=== PATIENT | male | born 1970 | race African-American/Black ===

== ENCOUNTER → 2021-04-12 17:23 | Outpatient (CLI) | payer OTHER, SELFPAY ==
--- NOTE | ~2021-04-12 | XR_ITS ---
XR cervical spine 4-5V DATE: 04/12/2021 18:56 INDICATION: Neck pain, radicular pain to left arm and shoulder TECHNIQUE: Standing AP, lateral, open-mouth, odontoid and swimmer views COMPARISON: None FINDINGS: C1 and C2 are normally aligned and the odontoid process is intact. No fracture or dislocati on or locked facet or prevertebral soft tissue swelling. There is minimal retrolisthesis at C4-5. There is moderate loss of disc space height at C5-6 and C6-7. There is uncovertebral joint spurring at C5-6 primarily. IMPRESSION: Digital changes of the mid and lower cervical spine Reviewed, dictated and finalized at location B.
--- NOTE | ~2021-04-12 | XR_ITS ---
XR shoulder LT min 2V DATE: 04/12/2021 18:56 INDICATION: Neck pain, radicular pain of left arm, shoulder TECHNIQUE: 4 views of left shoulder COMPARISON: None FINDINGS: No fracture, dislocation, periosteal reaction or bone destruction or abnormal soft tissue c alcification. Normal alignment at the acromioclavicular and glenohumeral joints. IMPRESSION: Negative Reviewed, dictated and finalized at location B. IMPRESSION: Negative
== END ==
PROVIDERS: PCP Pediatrics; Visit Provider Nurse Practitioner Family
DX: M54.2 Cervicalgia (principal); M79.2 Neuralgia and neuritis, unspecified; M25.512 Pain in left shoulder
CPT/HCPCS: 72050; 73030

== ENCOUNTER → 2021-06-20 15:30 | Outpatient (CLI) | payer OTHER, SELFPAY ==
--- NOTE | ~2021-06-20 | MR_ITS ---
EXAMINATION: MR cervical spine wo con DATE: 06/20/2021 16:19 INDICATION: Neck pain. TECHNIQUE: Magnetic resonance imaging (MRI) of the cervical spine was performed without intravenous c ontrast. Sequences included sagittal T2-weighted FSE, sagittal STIR FSE, sagittal T1-weighted FSE, ax ial MERGE, and axial T2-weighted FSE. COMPARISON: Cervical spine radiographs 04/12/2021 FINDINGS: There is 2 mm additional listhesis of C5 on C6. Vertebral body heights are normal. There is moderately decreased disc height at C5-C6. The spinal cord signal intensity is normal. The following disc levels are specifically discussed: C2-C3: The disc does not extend beyond the endplate margin. There is no uncovertebral joint osteoarth ritis. There is mild bilateral facet joint osteoarthritis. There is no neural foraminal stenosis. The re is no central canal stenosis. C3-C4: The disc does not extend beyond the endplate margin. There is no uncovertebral joint osteoarth ritis. There is mild left facet joint osteoarthritis. There is no neural foraminal stenosis. There is no central canal stenosis. C4-C5: The disc does not extend beyond the endplate margin. There is mild right uncovertebral joint o steoarthritis. There is mild bilateral facet joint osteoarthritis. There is mild right neural foramin al stenosis. There is no central canal stenosis. C5-C6: The disc is bulging. There is moderate bilateral uncovertebral joint osteoarthritis. There is mild bilateral facet joint osteoarthritis. There is moderate bilateral neural foraminal stenosis. The re is mild central canal stenosis. C6-C7: The disc does not extend beyond the endplate margin. There is moderate left uncovertebral join t osteoarthritis. There is mild bilateral facet joint osteoarthritis. There is mild left neural sabas inal stenosis. There is no central canal stenosis. C7-T1: The disc does not extend beyond the endplate margin. There is no uncovertebral joint osteoarth ritis. There is mild bilateral facet joint osteoarthritis. There is no neural foraminal stenosis. The re is no central canal stenosis. IMPRESSION: 1. Moderate spondylosis at C5-C6 and mild spondylosis at other levels. Reviewed, dictated and finalized at location A.
== END ==
PROVIDERS: PCP Pediatrics; Visit Provider Nurse Practitioner Family
DX: M47.892 Other spondylosis, cervical region (principal)
CPT/HCPCS: 72141

== ENCOUNTER 2022-12-08 12:48 | Outpatient (CLI) | payer BC, SELFPAY ==
--- NOTE | ~2022-12-08 | MR_ITS ---
EXAMINATION: MR cervical spine wo con DATE: 12/08/2022 13:55 INDICATION: Weakness. TECHNIQUE: Magnetic resonance imaging (MRI) of the cervical spine was performed without intravenous c ontrast. COMPARISON: Cervical spine MRI 06/20/2021 FINDINGS: There is 5 degrees dextrocurvature of cervical spine. Vertebral body heights are normal. Th ere is moderately decreased disc height at C5-C6. There is a lesion of increased T2-weighted signal i ntensity in the spinal cord on the left at C2 and C2-C3. The following disc levels are specifically d iscussed: C2-C3: The disc does not extend beyond the endplate margin. There is no uncovertebral joint osteoarth ritis. There is no facet joint osteoarthritis. There is no neural foraminal stenosis. There is no mannie tral canal stenosis. C3-C4: The disc does not extend beyond the endplate margin. There is mild left uncovertebral joint os teoarthritis. There is mild bilateral facet joint osteoarthritis. There is mild left neural foraminal stenosis. There is no central canal stenosis. C4-C5: The disc does not extend beyond the endplate margin. There is no uncovertebral joint osteoarth ritis. There is no facet joint osteoarthritis. There is no neural foraminal stenosis. There is no mannie tral canal stenosis. C5-C6: The disc is bulging. There is severe right and moderate left uncovertebral joint osteoarthriti s. There is mild bilateral facet joint osteoarthritis. There is moderate bilateral neural foraminal s tenosis. There is mild central canal stenosis. C6-C7: The disc does not extend beyond the endplate margin. There is severe left uncovertebral joint osteoarthritis. There is moderate left facet joint osteoarthritis. There is no neural foraminal steno sis. There is no central canal stenosis. C7-T1: The disc does not extend beyond the endplate margin. There is no uncovertebral joint osteoarth ritis. There is mild bilateral facet joint osteoarthritis. There is no neural foraminal stenosis. The re is no central canal stenosis. IMPRESSION: 1. Lesion in the spinal cord on the left at C2 and C2-C3. The differential diagnosis includes multipl e sclerosis, transverse myelitis, and acute disseminated encephalomyelitis (ADEM). 2. Moderate cervical spondylosis. Reviewed, dictated and finalized at location A. IMPRESSION: 1. Lesion in the spinal cord on the left at C2 and C2-C3. The differential diag nosis includes multiple sclerosis, transverse myelitis, and acute disseminated encephalomyelitis (ADEM). 2. Moderate cervical spondylosis.
--- NOTE | ~2022-12-08 | MR_ITS ---
EXAMINATION: MR brain IAC wo con DATE: 12/08/2022 13:55 INDICATION: Left hemiparesis. Tingling . Hearing loss. TECHNIQUE: Magnetic resonance imaging (MRI) of the brain, brainstem, and internal auditory canals was performed without intravenous contrast. COMPARISON: None. FINDINGS: There are scattered areas of nonspecific increased T2-weighted signal intensity in the cere bral white matter. There is no intracranial hemorrhage, acute infarction, or abnormal intracranial ma ss lesion. The ventricles are normal in size. There is mucosal thickening in the paranasal sinuses. T he mastoid air cells are normal. The internal auditory canals and inner and middle ears are normal. T he orbits are normal. IMPRESSION: 1. Mild nonspecific cerebral white matter disease, which likely represents chronic small vessel ische gena disease. Reviewed, dictated and finalized at location A. IMPRESSION: 1. Mild nonspecific cerebral white matter disease, which likely represents chronic care nurse kale small vessel ischemic disease.
== END 2022-12-08 12:49 | disposition home or self-care (01) ==
PROVIDERS: PCP Pediatrics; Visit Provider Nurse Practitioner Adult Health
DX: R53.1 Weakness (principal); M47.892 Other spondylosis, cervical region; R93.0 Abnormal findings on diagnostic imaging of skull and head, not elsewhere classified
CPT/HCPCS: 70551; 72141

== ENCOUNTER 2023-01-09 13:29 | Outpatient (CLI) | payer BC, SELFPAY ==
--- NOTE | ~2023-01-09 | MR_ITS ---
EXAMINATION: MR thoracic spine wo/w con DATE: 01/09/2023 14:54 INDICATION: Left-sided weakness TECHNIQUE: Magnetic resonance imaging (MRI) of the thoracic spine was performed without and with 13 m L Multihance intravenous contrast. Sagittal localizer T1-weighted FSE of the cervicothoracic spine wa s obtained. Sequences included sagittal T2-weighted FSE, sagittal T2-weighted FS FSE, sagittal T1-alice ghted FSE and axial T1-weighted SE. Postcontrast sequences included axial T2-weighted FSE, sagittal T 1-weighted FS FSE, and axial T1-weighted FS SE. COMPARISON: None FINDINGS: Alignment is normal.Vertebral body heights are normal. Normal marrow signal. Disc heights are normal. This do not extend beyond the endplate margins and there is no central canal stenosis. There is norm al spinal cord signal. The conus terminates at L1. There are no abnormal enhancing cord lesions. Mild facet osteoarthritis at a few levels in the mid to upper thoracic spine. No neural foraminal stenosi s. Paravertebral soft tissues are unremarkable.. IMPRESSION: 1. Mild facet osteoarthritis at a few levels in the mid upper thoracic spine is otherwise unremarkabl e. Otherwise unremarkable thoracic spine MR with no cord lesions or central canal or neural foraminal stenosis. Reviewed, dictated and finalized at location A. IMPRESSION: 1. Mild facet osteoarthritis at a few levels in the mid upper thoracic spine is otherwise unremarkable. Otherwise unremarkable thoracic spine MR with no cord lesions or central canal or neural foraminal stenosis.
--- NOTE | ~2023-01-09 | MR_ITS ---
EXAMINATION: MR cervical spine wo/w con DATE: 01/09/2023 14:54 INDICATION: Weakness TECHNIQUE: Magnetic resonance imaging (MRI) of the cervical spine was performed without and with 13 m L Multihance intravenous contrast. Sequences included sagittal T2-weighted FSE, sagittal T2-weighted FS FSE, sagittal T1-weighted FSE, axial T2-weighted FSE, and axial T1-weighted SE. Postcontrast seque nces included sagittal T1-weighted FS FSE, and axial T1-weighted FS SE. COMPARISON: 12/08/2022 FINDINGS: Unchanged 5 degrees cervical dextrocurvature. 1 mm retrolisthesis C5 on C6. Vertebral body heights ar e normal. Bone marrow signal intensity is normal. Unchanged moderate disc height loss at C5-C6 with d isc bulges resulting in mild central canal stenosis at this level. There is moderate left and severe right uncovertebral osteoarthritis along with mild bilateral facet osteoarthritis at this level which contributes to moderate bilateral neural foraminal stenosis. Additional unchanged facet and uncovert ebral osteoarthritis contributing to mild neural foraminal stenosis at a few additional levels as det eli on level by level basis on the prior report. No interval change in a T2 hyperintense lesion in the mid to posterior left side of the spinal cord at the level of C2 and C2-C3 which measures 1.3 cm craniocaudally and 5 mm in maximal orthogonal diameter. No evident associated enhancement or expansio n/contraction of the cord. No other cord lesions or abnormal enhancing lesions identified. IMPRESSION: 1. No interval change in a T2 hyperintense, nonenhancing, nonexpansile cord lesion at the left side o f the spinal cord at level of C2 and C2-C3. Differential remains multiple sclerosis, transverse myeli tis and acute disseminated encephalomyelitis (ADEM). 2. Moderate cervical spondylosis. Reviewed, dictated and finalized at location A. IMPRESSION: 1. No interval change in a T2 hyperintense, nonenhancing, nonexpansile cord les ion at the left side of the spinal cord at level of C2 and C2-C3. Differential remains multiple sclerosis, transverse myelitis and acute disseminated encephal omyelitis (ADEM). 2. Moderate cervical spondylosis.
== END 2023-01-09 13:30 ==
PROVIDERS: PCP Pediatrics; Visit Provider Neurological Surgery
DX: R53.1 Weakness (principal); M51.34 Other intervertebral disc degeneration, thoracic region; M47.892 Other spondylosis, cervical region
CPT/HCPCS: 72156; 72157; A9577

== ENCOUNTER 2023-01-27 09:30 | Outpatient (CLI) | payer BC, SELFPAY ==
[2023-01-21 11:23] VITALS: BMI 19.1
--- NOTE | 2023-01-21 11:23 | PC.NURSE ---
Pre Radiology instructions Report to the outpatient [facility] on date 01/27/23 at time 0900 for procedure Time: 1100. YOU MAY BE MONITORED AT HOSPITAL FOR UP TO 4 HOURS AFTER YOUR PROCEDURE. A visitor will be allowed to accompany the patient into the hospital. You and your visitor will be asked to self-screen and do not enter if you have any COVID symptoms. A mask is OPTIONAL within the hospital. Patients are to have no food or drink 6 hours prior to procedure time Driving will be restricted after the procedure, you must have a person to drive you home. Labs will be drawn in preop area and once reviewed, you will be taken to radiology area for procedure. When the procedure is completed, you will be taken to outpatient where you will be monitored for several hours. You may have one visitor in this area. Other than holding anti-coagulants, patient may take other medication(s) as scheduled. Prior to your appointment date patients are instructed to hold anti-coagulants after discussing with ordering provider to stop. If unable to discontinue anti-coagulants please notify radiologist. ? No aspirin or warfarin (Coumadin) for 7 days prior to the procedure. ? No clopidogrel (Plavix), ticagrelor (Brilinta), prasugrel (Effient) or dabigatran (Pradaxa) for 5 days prior to the procedure. ? No rivaroxaban (Xarelto), apixaban (Eliquis), dipyridamole (Aggrenox or Persantine) or cilostazol (Pletal) for 2 days prior to the procedure. Medications to discontinue per physician: N/A Date to take last dose: N/A Please leave all valuables, including medications, at home the day of procedure. The hospital will not accept responsibility for valuables. Wear comfortable, loose fitting clothing.? Follow any additional instructions given to you from ordering provider. Telephone instructions given to FLORENCE HICKEY and asked if any additional questions and then verbalized understanding. Patient advised to call scheduling provider office or registration scheduling [phone] if any additional questions.
--- NOTE | ~2023-01-27 | XR_ITS ---
EXAMINATION: XR lumbar puncture diagnostic DATE: 01/27/2023 11:11 INDICATION: Transverse myelitis. TECHNIQUE: The procedure including the risks, benefits, and alternatives was discussed with the patie nt. Risks discussed included spinal headache, cerebrospinal fluid leak, bleeding, and infection. The patient understood the risks and agreed to proceed. A timeout was performed to verify the patient' s name, date of , and procedure to be performed. The skin overlying the L3-L4 level was prepped and draped in usual sterile fashion. Subcutaneous 1% lidocaine was used for local anesthesia. A 20 gauge spinal needle was advanced under fluoroscopic guidance. The needle was removed and the entry s ite was cleaned and dressed. There were no immediate complications. Fluoroscopy exposure time was 0. 1 minutes. The total number of images was 1. FINDINGS: Real-time fluoroscopy demonstrates the needle at the L3-L4 level. The opening pressure was 15 cm water (Normal range is variably defined as 6-20 cm water and up to 25 cm water in obese patient s. Pressure >25 cm water is one of the modified Dandy criteria for idiopathic intracranial hypertensi on). 14 mL of clear, colorless fluid was collected in 4 tubes. IMPRESSION: 1. Successful fluoro-guided lumbar puncture. Reviewed, dictated and finalized at location A.
[2023-01-27 09:16] LABS: INR 0.9; Prothrombin Time 12.3 Seconds (11.1-14.7)
[2023-01-27 09:31] VITALS: BP 100/63; PULSE 65; RESP 16; TEMP 36.7; O2SAT 100
[2023-01-27 10:01] LABS: Mean Platelet Volume 9.8 fl (7.4-10.4); Platelet Count Result 185 k/mm3 (150-375)
[2023-01-27 10:45] VITALS: BP 95/55; PULSE 54; RESP 16
[2023-01-27 11:00] VITALS: BP 105/58; PULSE 50; RESP 16
[2023-01-27 11:30] VITALS: BP 105/67; PULSE 61; RESP 16
[2023-01-27 11:32] LABS: Glucose CSF 49 mg/dL (40-70); Total Protein CSF 63 mg/dL (12-60)
[2023-01-27 12:00] VITALS: BP 98/61; PULSE 65; RESP 16
[2023-01-27 12:30] VITALS: BP 101/62; PULSE 60; RESP 16
[2023-01-27 12:53] LABS: CSF source CSF
[2023-01-27 12:54] LABS: Appearance CSF Clear (Clear); Color CSF Colorless (Colorless)
[2023-01-27 12:55] LABS: Nucleated Cell CSF 1 /uL (0-5); Red Blood Cell CSF 1 (0-2)
[2023-01-27 13:17] LABS: Lymphocytes CSF 92 % (40-80); Macrophages CSF 8
--- NOTE | 2023-01-27 14:52 | SUR.PHASEII ---
1100 - bandaid intact to spine. it's dry, intact. voicing no c/o pain.
[2023-02-04 19:03] LABS: Albumin, CSF 29.9 mg/dL (8.0-42.0); Albumin, Serum 4.3 g/dL (3.6-5.1); IgG, CSF 2.4 mg/dL (0.8-7.7); Immunoglobulin G, Serum 579 mg/dL (600-1640); Myelin Basic Protein, CSF <2.0 mcg/L (<=4.0); Oligoclonal Bands (IgG), CSF Absent (Absent)
== END 2023-01-27 12:45 | disposition home or self-care (01) ==
LOC: ANHSURGERY 15:11
PROVIDERS: PCP Pediatrics; Visit Provider Radiology Diagnostic Radiology
PROC: 009U3ZZ Drainage of Spinal Canal, Percutaneous Approach (ICD-10-PCS; CPT 62328; principal; 2023-01-27 11:00)
DX: G04.91 Myelitis, unspecified (principal)
CPT/HCPCS: 36415; 62328; 82040; 82042; 82784; 82945; 83873; 83916; 84157; 85049; 85610; 89051

== ENCOUNTER 2023-09-04 02:26 | Day surgery (SDC) | payer BC, SELFPAY ==
[2023-08-24 11:17] VITALS: BMI 19.5
--- NOTE | 2023-09-02 08:52 | SUR.PREOP ---
Patient called regarding upcoming procedure. Reviewed preop instructions, new appointment times, and procedure prep.
--- NOTE | 2023-09-03 09:38 | WPDANESEPPF ---
Anes - Initial Pre Proc Eval Procedure: Operation Date: 09/04/23 11:30 Proposed Procedures p Screening Colonoscopy - Gene Stokes MD Date/Time: 09/03/23 09:38 Surgeon: Gene Stokes MD Pre Op Diagnosis: neoplasm screening Patient Data Age: 53 Gender: M Height: 1.8 m Weight: 63.7 kg Allergies Allergy/AdvReac Type Severity Reaction Status Date / Time No Known Allergies Allergy Verified 09/04/23 10:52 Home Medications Medication Instructions Recorded Confirmed Type carbamazepine 100 mg 100 mg PO TID 01/21/23 09/04/23 History tablet,extended release,12 hr escitalopram oxalate 10 mg tablet 10 mg PO DAILY 01/21/23 09/04/23 History Patient hx anesthesia problems: none Family hx anesthesia problems: none Results Review: All pre-operative results and documents have been reviewed as part of the pre-operative evaluation. [facility] Past Medical History Medical History (Updated 09/04/23 @ 11:30 by Gene Stokes MD) Spondylosis without myelopathy or radiculopathy, cervical region Transverse myelitis Weakness Surgical History Surgical History (Updated 10/24/22 @ 10:23 by Teresa Landis MA) H/O vasectomy Family History Family History (Updated 10/24/22 @ 10:23 by Teresa Landis MA) Other Diabetes mellitus Heart disease Hypertension Social History Social History (Updated 10/24/22 @ 10:24 by Teresa Landis MA) Smoking status: Current some day smoker Tobacco type: e-cigarettes/vaping Substance use type: marijuana Other substance usage details: Used for pain, Gummies and a vape used Lack of Transportation: No Lack of Food: Never True Current Housing: I Have Housing Concerned About Future Housing: No Difficulty Paying Gas/Electric Bills: No Difficulty Paying for Meds: No Currently Unemployed: No Education: Decline to Answer Difficulty w/ Childcare or Family Care: No Living arrangements: with family Occupation/Education: occupation Anes - Eval Final PreProcedure Day of Procedure 09/03/23 09:38 Patient weight: normal Heart: regular rate and rhythm Lungs: clear to auscultation and normal air movement Airway: Mallampati scale class II Neurological: alert and oriented Last oral intake: >/= 8 hours ASA classification: II Emergent: no Anesthetic plan: proceed Anesthesia type and monitoring: general GIVS and standard monitoring Results Review: All pre-operative results and documents have been reviewed as part of the pre-operative evaluation. Informed Consent: The patient's anesthetic plan and its attendant risks and benefits were discussed with the patient/family/POA. Questions were solicited and answers provided to the satisfaction of the patient/family/POA.
[2023-09-04 10:53] VITALS: BP 115/53; PULSE 60; RESP 18; TEMP 36.6; O2SAT 100
[2023-09-04] MEDS: LACTATED RINGERS 1,000 ML 150 ML IV CONT (11:02)
--- NOTE | 2023-09-04 11:29 | P.HP_ITS ---
History of Present Illness History of Present Illness Consent: Risks, benefits, and alternatives have been discussed and questions answered. Patient agrees to proceed with procedure. Chief complaint: neoplasm screening Narrative: Grabiel Wei is a 53 year old male Referred for screening colonoscopy. Patient's current weight appetite and bowel movements are normal. Patient denies abdominal pain. He has had no bleeding. Family history noncontributory. Past medical history is significant he has been treated for transverse myelitis with some weakness of lower extremity. Review of Systems Review of Systems: Review of systems noncontributory. [facility] Past Medical History Medical History (Updated 09/04/23 @ 11:30 by Gene Stokes MD) Spondylosis without myelopathy or radiculopathy, cervical region Transverse myelitis Weakness Surgical History Surgical History (Updated 10/24/22 @ 10:23 by Teresa Ladnis MA) H/O vasectomy Family History Family History (Updated 10/24/22 @ 10:23 by Teresa Landis MA) Other Diabetes mellitus Heart disease Hypertension Social History Social History (Updated 10/24/22 @ 10:24 by Teresa Ladnis MA) Smoking status: Current some day smoker Tobacco type: e-cigarettes/vaping Substance use type: marijuana Other substance usage details: Used for pain, Gummies and a vape used Lack of Transportation: No Lack of Food: Never True Current Housing: I Have Housing Concerned About Future Housing: No Difficulty Paying Gas/Electric Bills: No Difficulty Paying for Meds: No Currently Unemployed: No Education: Decline to Answer Difficulty w/ Childcare or Family Care: No Living arrangements: with family Occupation/Education: occupation Meds Home Medications and Allergies Home Medications Medication Instructions Recorded Confirmed Type carbamazepine 100 mg 100 mg PO TID 01/21/23 09/04/23 History tablet,extended release,12 hr escitalopram oxalate 10 mg tablet 10 mg PO DAILY 01/21/23 09/04/23 History Allergies Allergy/AdvReac Type Severity Reaction Status Date / Time No Known Allergies Allergy Verified 09/04/23 10:52 Vital Signs Vital Signs - 24 hr 09/04/23 10:53 Temperature 97.8 F Pulse Rate 60 Respiratory Rate 18 Blood Pressure 115/53 L Pulse Oximetry 100 Oxygen Delivery Room Air Exam Narrative: Physical exam reveals patient to be alert. Vital signs stable. HEENT exam is unremarkable. Patient is anicteric. Lungs are clear to auscultation and percussion. Heart is without murmur or extra sounds. Abdomen bowel sounds are present soft nontender with no organomegaly. Digital external rectal exam normal. Assessment and Plan Assessment and plan (1) Encounter for screening colonoscopy: Code(s): Z12.11 - Encounter for screening for malignant neoplasm of colon Status: Acute Assessment and Plan: Patient presents for his 1st screening colonoscopy today
[2023-09-04 12:00] VITALS: BP 88/61; PULSE 55; RESP 14; O2SAT 100
[2023-09-04 12:10] VITALS: BP 93/68; PULSE 52; RESP 14; O2SAT 100
[2023-09-04 12:20] VITALS: BP 117/80; PULSE 58; RESP 18; O2SAT 100
== END 2023-09-04 12:40 | disposition home or self-care (01) ==
PROVIDERS: PCP Pediatrics; Visit Provider Internal Medicine Gastroenterology
PROC: 0DJD8ZZ Inspection of Lower Intestinal Tract, Via Natural or Artificial Opening Endoscopic (ICD-10-PCS; CPT 45378; principal; 2023-09-04 11:30)
DX: Z12.11 Encounter for screening for malignant neoplasm of colon (principal); D12.4 Benign neoplasm of descending colon; K63.5 Polyp of colon; K64.8 Other hemorrhoids; F12.90 Cannabis use, unspecified, uncomplicated
CPT/HCPCS: 45385; 88305; J2704; J7120